=== PATIENT | female | born 1940 | race Caucasian/White ===

== ENCOUNTER 2023-09-26 18:06 | Observation (INO) ==
[2023-09-26 18:19] VITALS: BMI 23.1
--- NOTE | 2023-09-26 18:19 | DR.FEVERAD ---
HPI Time seen Time Seen by Provider: 09/26/23 18:19 PCP Primary Care Physician: Mirta Complaints/Symptoms Chief Complaint:: Cough, congestion, and fever x 2-3 days. Patient reports she has generalized weakness and poor appetite. Noted old bruise, under right eye from fall couple x 3 days. Patient family reports she has been in the recliner for several days. Noted drainage bilateral eyes Source History Provided: Patient and EMS Mode of Arrival Mode of Arrival: Stretcher Timing Onset of Chief Complaint: 09/23/23 PMH PMH Past Medical History: Yes Past Medical History: Anemia, Diabetes and Hypertension Past Medical History Comment: Afib Past Surgical History: Yes Surgical History: Hysterectomy and Ortho Surgery Family History History of Family Medical Conditions: Yes Family Medical History: Diabetes Mellitus, Cancer and Hypertension Social History Does patient currently use any type of tobacco product: No Have you used tobacco products in the last 12 months: No Type of Tobacco Use: None Does any household member use tobacco: No Alcohol Use: None Do you use any recreational Drugs:: No Lives With: Family Lives Where: Home Infectious screening In the last 2 months have you had wt loss of >10#?: NO Have you had fever, night sweats or hemotysis?: No Have you traveled outside the country in the last 6 months?: No Isolation: Respiratory PE Vital Signs Vitals: Vital Signs Temperature 99.2 F Pulse Rate 84 Pulse Rate 83 Pulse Rate 85 Pulse Rate 87 Pulse Rate 87 Pulse Rate 85 Pulse Rate 87 Pulse Rate 86 Pulse Rate 92 Pulse Rate 86 Pulse Rate 85 Pulse Rate 87 Pulse Rate 89 Pulse Rate 90 Respiratory Rate 23 Respiratory Rate 23 Respiratory Rate 25 Respiratory Rate 24 Respiratory Rate 24 Respiratory Rate 25 Respiratory Rate 25 Respiratory Rate 26 Respiratory Rate 36 Respiratory Rate 27 Respiratory Rate 26 Respiratory Rate 20 Blood Pressure 136/64 Blood Pressure 140/64 Blood Pressure 150/67 Blood Pressure 139/64 Blood Pressure 139/64 Blood Pressure 159/59 Blood Pressure 141/65 Blood Pressure 135/75 Blood Pressure 135/75 O2 Sat by Pulse Oximetry 93 O2 Sat by Pulse Oximetry 98 O2 Sat by Pulse Oximetry 98 O2 Sat by Pulse Oximetry 95 O2 Sat by Pulse Oximetry 97 O2 Sat by Pulse Oximetry 97 O2 Sat by Pulse Oximetry 96 O2 Sat by Pulse Oximetry 96 O2 Sat by Pulse Oximetry 96 ROR Labs Reviewed 09/26/23 18:40 09/26/23 18:40 Laboratory: WBC 7.5 X10^3/uL (3.6-10.0) 09/26/23 18:40 RBC 3.95 X10^6/uL (3.5-5.4) 09/26/23 18:40 Hgb 12.0 g/dL (12.0-16.0) 09/26/23 18:40 Hct 36.0 % (36.0-47.0) 09/26/23 18:40 MCV 91.1 fL (80.0-100.0) 09/26/23 18:40 MCH 30.3 pg (27.0-34.0) 09/26/23 18:40 MCHC 33.2 g/dL (33.0-35.0) 09/26/23 18:40 RDW 16.2 % (11.6-16.5) 09/26/23 18:40 Plt Count 144 X10^3/uL (150.0-450.0) L 09/26/23 18:40 MPV 8.0 fL (7.4-11.0) 09/26/23 18:40 Neut % (Auto) 78.6 % (42.0-75.0) H 09/26/23 18:40 Lymph % (Auto) 11.1 % (21.0-51.0) L 09/26/23 18:40 [place] % (Auto) 9.7 % (0.0-13.0) 09/26/23 18:40 Eos % (Auto) 0.2 % (0.9-2.9) L 09/26/23 18:40 Baso % (Auto) 0.4 % (0.2-1.0) 09/26/23 18:40 Neut # (Auto) 5.9 x10^3/uL (2.2-4.8) H 09/26/23 18:40 Lymph # (Auto) 0.8 X10^3/uL (1.3-2.9) L 09/26/23 18:40 [place] # (Auto) 0.7 x10^3/uL (0.3-0.8) 09/26/23 18:40 Eos # (Auto) 0.0 x10^3/uL (0.0-0.2) 09/26/23 18:40 Baso # (Auto) 0.0 X10^3/uL (0.0-0.1) 09/26/23 18:40 Absolute Nucleated RBC 0.1 /100WBC 09/26/23 18:40 Sodium 133 mmol/L (136-145) L 09/26/23 18:40 Corrected Sodium TNP 09/26/23 18:40 Potassium 4.3 mmol/L (3.5-5.1) 09/26/23 18:40 Chloride 100 mmol/L (98-107) 09/26/23 18:40 Carbon Dioxide 29.3 mmol/L (21-32) 09/26/23 18:40 BUN 24 mg/dL (7-18) H 09/26/23 18:40 Creatinine 1.54 mg/dL (0.55-1.02) H 09/26/23 18:40 Est GFR (MDRD) Af Amer 41 (>60) L 09/26/23 18:40 Est GFR (MDRD) Non-Af 34 (>60) L 09/26/23 18:40 Glucose 69 mg/dL (65-99) 09/26/23 18:40 Lactic Acid 0.6 mmol/L (0.4-2.0) 09/26/23 18:40 Calcium 7.9 mg/dL (8.5-10.1) L 09/26/23 18:40 Corrected Calcium 9.1 mg/dL (8.5-10.1) 09/26/23 18:40 Total Bilirubin 0.60 mg/dL (0.2-1.0) 09/26/23 18:40 AST 25 Units/L (15-37) 09/26/23 18:40 ALT 9 Units/L (12-78) L 09/26/23 18:40 Alkaline Phosphatase 82 Units/L (46-116) 09/26/23 18:40 Total Protein 6.4 g/dL (6.4-8.2) 09/26/23 18:40 Albumin 2.5 g/dL (3.4-5.0) L 09/26/23 18:40 Globulin 3.9 g/dL (2.5-4.5) 09/26/23 18:40 Albumin/Globulin Ratio 0.6 Ratio (1.1-2.1) L 09/26/23 18:40 Specimen Type Catherized urine 09/26/23 19:01 Urine Color Yellow (YELLOW) 09/26/23 19:01 Urine Appearance Clear (CLEAR) 09/26/23 19: Urine pH 5.0 (5.0 - 8.0) 09/26/23 19:01 Ur Specific [place] 1.020 (1.000-1.030) 09/26/23 19:01 Urine Protein 2+ (NEGATIVE) 09/26/23 19:01 Urine Glucose (UA) Negative (NEGATIVE) 09/26/23 19: Urine Ketones Negative (NEGATIVE) 09/26/23 19:01 Urine Blood 5+ (NEGATIVE) 09/26/23 19:01 Urine Nitrite Negative (NEGATIVE) 09/26/23 19: Urine Bilirubin Negative (NEGATIVE) 09/26/23 19:01 Urine Urobilinogen Normal (NORMAL) 09/26/23 19:01 Ur Leukocyte Esterase Negative (NEGATIVE) 09/26/23 19:01 Urine RBC 5-10 /HPF (0-3) A 09/26/23 19:01 Urine WBC None seen /HPF (0-5) 09/26/23 19:01 Ur Squamous Epith Cells Rare /HPF (NEGATIVE) 09/26/23 19:01 Urine Bacteria Negative /HPF (NEGATIVE) 09/26/23 19:01 Ur Culture Indicated? No/not indicated 09/26/23 19:01 SARS-CoV-2 (PCR) Negative (NEGATIVE) 09/26/23 18:32 Influenza Type A (PCR) Negative (NEGATIVE) 09/26/23 18:32 Influenza Type B (PCR) Negative (NEGATIVE) 09/26/23 18:32 RSV (PCR) Negative (NEGATIVE) 09/26/23 18:32 Opioid Opioid Risk Tool Age (Ousmane box if 16-45): No Total: 0 Total Score Risk Category: Low Risk Copyright: Matt NICHOLE predicting aberrant behaviors Discharge Plan Diagnosis Discharge Problem: Pneumonia, Generalized weakness Discharge Plan Patient Disposition: 09 ADMITTED INPATIENT Condition: Stable Orders to Discharge Patient Discharge Orders: Transfer (Routine); Ordered 09/26/23 Ordered By: KAREN AMARAL
[2023-09-26] MEDS ORDERED: NS 1,000 ML IV 1,000 ML IV ONE (18:29)
[2023-09-26] MEDS ORDERED: NS 1,000 ML IV 1,000 ML ONE (18:31)
[2023-09-26 18:52] LABS: BASOPHILS % (AUTO) 0.4 % (0.2-1.0); EOSINOPHILS % (AUTO) 0.2 % (0.9-2.9); LYMPHOCYTES # (AUTO) 0.8 X10^3/uL (1.3-2.9); LYMPHOCYTES % (AUTO) 11.1 % (21.0-51.0); MEAN CORPUSCULAR HEMOGLOBIN 30.3 pg (27.0-34.0); MEAN CORPUSCULAR HGB CONC 33.2 g/dL (33.0-35.0); MEAN CORPUSCULAR VOLUME 91.1 fL (80.0-100.0); MONOCYTES # (AUTO) 0.7 x10^3/uL (0.3-0.8); MONOCYTES % (AUTO) 9.7 % (0.0-13.0); NEUTROPHILS # (AUTO) 5.9 x10^3/uL (2.2-4.8); NEUTROPHILS % (AUTO) 78.6 % (42.0-75.0); PLATELET COUNT 144 X10^3/uL (150.0-450.0); RED BLOOD COUNT 3.95 X10^6/uL (3.5-5.4); RED CELL DISTRIBUTION WIDTH 16.2 % (11.6-16.5); WHITE BLOOD COUNT 7.5 X10^3/uL (3.6-10.0)
[2023-09-26 19:06] LABS: ALANINE AMINOTRANSFERASE 9 Units/L (12-78); ALBUMIN 2.5 g/dL (3.4-5.0); ALKALINE PHOSPHATASE 82 Units/L (46-116); ASPARTATE AMINO TRANSFERASE 25 Units/L (15-37); BLOOD UREA NITROGEN 24 mg/dL (7-18); CALCIUM 7.9 mg/dL (8.5-10.1); CARBON DIOXIDE 29.3 mmol/L (21-32); CHLORIDE 100 mmol/L (98-107); COR CA(FOR HYPOALB) 9.1 mg/dL (8.5-10.1); CREATININE 1.54 mg/dL (0.55-1.02); GLUCOSE 69 mg/dL (65-99); POTASSIUM 4.3 mmol/L (3.5-5.1); SODIUM 133 mmol/L (136-145); TOTAL PROTEIN 6.4 g/dL (6.4-8.2); eGFR NON BLACK RACES 34 (>60)
[2023-09-26 19:19] LABS: BILIRUBIN,URINE NEGATIVE (NEGATIVE); BLOOD/HEMOGLOBIN,URINE 5+ (NEGATIVE); GLUCOSE, URINE NEGATIVE (NEGATIVE); KETONES,URINE NEGATIVE (NEGATIVE); LEUKOCYTE ESTERASE ,URINE NEGATIVE (NEGATIVE); NITRITES,URINE NEGATIVE (NEGATIVE); PROTEIN,URINE 2+ (NEGATIVE); UROBILINOGEN,URINE NORMAL (NORMAL)
[2023-09-26 19:23] LABS: APPEARANCE,URINE CLEAR (CLEAR); BACTERIA,URINE NEGATIVE /HPF (NEGATIVE); COLOR,URINE YELLOW (YELLOW); SQUAMOUS EPITHELIAL CELL,UR RARE /HPF (NEGATIVE)
[2023-09-26] MEDS ORDERED: ROCEPHIN VIAL 1 GRAM IVP ONE (19:29)
[2023-09-26] MEDS ORDERED: ROCEPHIN VIAL 1 GRAM ONE (19:30)
--- NOTE | 2023-09-26 21:21 | RAD ---
EXAM:CHEST, 1 VIEWHISTORY:cough, congestion, fever;COMPARISON:CT thoracic spine from September 01, 2023 and chest radiograph from May 08, 2023TECHNIQUE:Chest radiographic imaging 1 view AP projectionFINDINGS:No cardiomegalyNo focal infiltrate.Airspace opacity at the medial right lung base correlates with elevation of the stomach above the diaphragm; as seen on the comparison CT.No acute osseous abnormality.No pleural effusion.No pneumothorax.Soft tissues are unremarkable.No acute osseous abnormality.IMPRESSION:No imaging findings of acute cardiopulmonary diseaseTHIS IS AN ELECTRONICALLY VERIFIED FINAL [id number]/26/2023 9:17 PM - Electronically signed by Channing Mcpherson MD
[2023-09-26] MEDS ORDERED: VENTOLIN or PROAIR HFA IN PRN (23:34)
[2023-09-26] MEDS ORDERED: NovoLIN R (or HumuLIN R) SC PRN (23:34)
[2023-09-27] MEDS: NS 1,000 ML IV 1,000 ML IV SCH ×2 (00:06→15:23)
[2023-09-27 05:11] LABS: BASOPHILS % (AUTO) 0.4 % (0.2-1.0); EOSINOPHILS % (AUTO) 0.8 % (0.9-2.9); HEMATOCRIT 35.5 % (36.0-47.0); HEMOGLOBIN 11.7 g/dL (12.0-16.0); LYMPHOCYTES # (AUTO) 0.9 X10^3/uL (1.3-2.9); LYMPHOCYTES % (AUTO) 14.9 % (21.0-51.0); MEAN CORPUSCULAR VOLUME 91.1 fL (80.0-100.0); MEAN PLATELET VOLUME 8.4 fL (7.4-11.0); MONOCYTES # (AUTO) 0.7 x10^3/uL (0.3-0.8); MONOCYTES % (AUTO) 11.4 % (0.0-13.0); NEUTROPHILS # (AUTO) 4.2 x10^3/uL (2.2-4.8); NEUTROPHILS % (AUTO) 72.5 % (42.0-75.0); PLATELET COUNT 139 X10^3/uL (150.0-450.0); RED CELL DISTRIBUTION WIDTH 16.2 % (11.6-16.5); WHITE BLOOD COUNT 5.8 X10^3/uL (3.6-10.0)
[2023-09-27 05:27] LABS: ALANINE AMINOTRANSFERASE 6 Units/L (12-78); ALBUMIN 2.3 g/dL (3.4-5.0); ALKALINE PHOSPHATASE 78 Units/L (46-116); ASPARTATE AMINO TRANSFERASE 28 Units/L (15-37); BLOOD UREA NITROGEN 22 mg/dL (7-18); CALCIUM 7.8 mg/dL (8.5-10.1); CARBON DIOXIDE 29.5 mmol/L (21-32); CHLORIDE 102 mmol/L (98-107); COR CA(FOR HYPOALB) 9.2 mg/dL (8.5-10.1); CREATININE 1.39 mg/dL (0.55-1.02); GLUCOSE 83 mg/dL (65-99); MAGNESIUM 1.7 mg/dL (2.0-2.9); SODIUM 135 mmol/L (136-145); eGFR NON BLACK RACES 38 (>60)
[2023-09-27] MEDS ORDERED: CONSULT PHARMACY - POTASSIUM & MAGNESIUM XX SCH (07:00)
[2023-09-27] MEDS: AMARYL TAB 4 MG PO SCH (08:35)
[2023-09-27] MEDS: ZYLOPRIM PO SCH (08:36)
[2023-09-27] MEDS: FERROUS GLUCONATE PO SCH (08:36)
[2023-09-27] MEDS: XARELTO PO SCH (08:36)
[2023-09-27] MEDS: CARDIZEM ER 60 MG 12-HR PO SCH ×2 (08:36→20:49)
[2023-09-27] MEDS: LASIX PO SCH (08:37)
[2023-09-27] MEDS: COREG TAB 3.125 MG PO SCH ×2 (08:37→20:49)
[2023-09-27] MEDS: ZyrTEC SYRUP 1 MG/ML 5ml unit dose PO SCH (08:37)
[2023-09-27] MEDS: MAG-OX TAB PO SCH ×2 (08:37→10:43)
[2023-09-27] MEDS: Atrovent NEB TX 0.02% NEB SCH ×4 (08:59→20:45)
[2023-09-27] MEDS ORDERED: SIMVASTATIN 5 MG PO SCH (09:00)
[2023-09-27] MEDS ORDERED: Atrovent NEB TX 0.02% NEB SCH (09:00)
[2023-09-27] MEDS: CALCIFEDIOL 30 MCG PO SCH ×2 (11:12→15:36)
[2023-09-27] MEDS: [UNRECOGNIZED DRUG - OTHER] PO SCH ×2 (11:12→15:36)
--- NOTE | 2023-09-27 12:48 | DR.H&P ---
H&P History & Physical for Day of: H&P Date: 09/27/23 Chief Complaint Chief Complaint: Cough, congestion and fever for 2 to 3 days. Allergies Allergies Allergy/AdvReac Type Severity Reaction Status Date / Time Sulfa (Sulfonamide Allergy Mild Verified 09/26/23 18:29 Antibiotics) [SULFA] clindamycin Allergy Verified 09/26/23 19:04 History of Present Illness History of Present Illness: This is a pleasant 83-year-old white female who presented to [facility] emergency department with the chief complaint of a cough with congestion and fever for the last 2 to 3 days. She is coughing up some yellow-colored sputum that is fairly thick she reports. She does, she has a history of COPD. She is a non-smoker and has never been a smoker in the past. She reports that she has had generalized weakness and poor appetite. She also tells me that she fell about 2 weeks ago and has bruising under both of her eyes. She has been in a recliner for the last several days and has no other reports of problems except what is listed above. She is noted to be mildly anemic and also to have mild dehydration. Past Medical History Past Medical History: Anemia, Diabetes and Hypertension Past Surgical History Surgical History: Hysterectomy and Ortho Surgery Family History Family Medical History: Diabetes Mellitus and Hypertension Social History Does patient currently use any type of tobacco product: No Have you used tobacco products in the last 12 months: No Type of Tobacco Use: None Does any household member use tobacco: No Alcohol Use: None Drug Use: None Medications Home Medications: Home Medications Medication Instructions Recorded Confirmed Type diltiazem HCl 60 mg 60 mg PO BID 09/25/15 09/26/23 History capsule,extended release 12 hr rivaroxaban 10 mg tablet (Xarelto) 5 mg PO DAILY 09/25/15 09/26/23 History venlafaxine 37.5 mg tablet 37.5 mg PO HS 09/25/15 09/26/23 History albuterol sulfate 90 mcg/actuation 2 puff inhalation Q6H PRN 09/26/23 09/26/23 History aerosol inhaler allopurinol 100 mg tablet 100 mg PO QDAY 09/26/23 09/26/23 History calcifediol 30 mcg capsule,24 30 mcg PO QDAY 09/26/23 09/26/23 History hr,extended release (Rayaldee) carvedilol 3.125 mg tablet 3.125 mg PO BID 09/26/23 09/26/23 History doxepin 10 mg capsule 10 mg PO QPM 09/26/23 09/26/23 History ferrous sulfate 325 mg (65 mg 325 mg PO QPM 09/26/23 09/26/23 History iron) tablet (FeroSul) furosemide 40 mg tablet 40 mg PO QDAY 09/26/23 09/26/23 History gabapentin 100 mg capsule 100 mg PO QPM 09/26/23 09/26/23 History glimepiride 4 mg tablet 4 mg PO QDAY 09/26/23 09/26/23 History insulin regular human 100 unit/mL See Rx Instructions .Route 09/26/23 09/26/23 History injection solution .COMPLEX PRN ipratropium bromide 0.02 % 1 ml continuous nebulization QID 09/26/23 09/26/23 History solution for inhalation levocetirizine 5 mg tablet 2.5 mg PO QDAY 09/26/23 09/26/23 History semaglutide 0.25 mg or 0.5 mg (2 0.5 mg subcut QWEEK 09/26/23 09/26/23 History mg/3 mL) subcutaneous pen injector (Ozempic) simvastatin 5 mg tablet 5 mg PO QDAY 09/26/23 09/26/23 History Labs 09/27/23 04:21 09/27/23 04:21 Labs: Laboratory WBC 5.8 X10^3/uL (3.6-10.0) 09/27/23 04:21 RBC 3.90 X10^6/uL (3.5-5.4) 09/27/23 04:21 Hgb 11.7 g/dL (12.0-16.0) L 09/27/23 04:21 Hct 35.5 % (36.0-47.0) L 09/27/23 04:21 MCV 91.1 fL (80.0-100.0) 09/27/23 04:21 MCH 30.0 pg (27.0-34.0) 09/27/23 04:21 MCHC 33.0 g/dL (33.0-35.0) 09/27/23 04:21 RDW 16.2 % (11.6-16.5) 09/27/23 04:21 Plt Count 139 X10^3/uL (150.0-450.0) L 09/27/23 04:21 MPV 8.4 fL (7.4-11.0) 09/27/23 04:21 Neut % (Auto) 72.5 % (42.0-75.0) 09/27/23 04:21 Lymph % (Auto) 14.9 % (21.0-51.0) L 09/27/23 04:21 [place] % (Auto) 11.4 % (0.0-13.0) 09/27/23 04:21 Eos % (Auto) 0.8 % (0.9-2.9) L 09/27/23 04:21 Baso % (Auto) 0.4 % (0.2-1.0) 09/27/23 04:21 Neut # (Auto) 4.2 x10^3/uL (2.2-4.8) 09/27/23 04:21 Lymph # (Auto) 0.9 X10^3/uL (1.3-2.9) L 09/27/23 04:21 [place] # (Auto) 0.7 x10^3/uL (0.3-0.8) 09/27/23 04:21 Eos # (Auto) 0.0 x10^3/uL (0.0-0.2) 09/27/23 04:21 Baso # (Auto) 0.0 X10^3/uL (0.0-0.1) 09/27/23 04:21 Absolute Nucleated RBC 0.0 /100WBC 09/27/23 04:21 Sodium 135 mmol/L (136-145) L 09/27/23 04:21 Corrected Sodium TNP 09/27/23 04:21 Potassium 4.0 mmol/L (3.5-5.1) 09/27/23 04:21 Chloride 102 mmol/L (98-107) 09/27/23 04:21 Carbon Dioxide 29.5 mmol/L (21-32) 09/27/23 04:21 BUN 22 mg/dL (7-18) H 09/27/23 04:21 Creatinine 1.39 mg/dL (0.55-1.02) H 09/27/23 04:21 Est GFR (MDRD) Af Amer 47 (>60) L 09/27/23 04:21 Est GFR (MDRD) Non-Af 38 (>60) L 09/27/23 04:21 Glucose 83 mg/dL (65-99) 09/27/23 04:21 POC Glucose (mg/dL) 147 mg/dL (65-99) H 09/27/23 11:19 Lactic Acid 0.6 mmol/L (0.4-2.0) 09/26/23 18:40 Calcium 7.8 mg/dL (8.5-10.1) L 09/27/23 04:21 Corrected Calcium 9.2 mg/dL (8.5-10.1) 09/27/23 04:21 Magnesium 1.7 mg/dL (2.0-2.9) L 09/27/23 04:21 Total Bilirubin 0.40 mg/dL (0.2-1.0) 09/27/23 04:21 AST 28 Units/L (15-37) 09/27/23 04:21 ALT 6 Units/L (12-78) L 09/27/23 04:21 Alkaline Phosphatase 78 Units/L (46-116) 09/27/23 04:21 Total Protein 6.0 g/dL (6.4-8.2) L 09/27/23 04:21 Albumin 2.3 g/dL (3.4-5.0) L 09/27/23 04:21 Globulin 3.7 g/dL (2.5-4.5) 09/27/23 04:21 Albumin/Globulin Ratio 0.6 Ratio (1.1-2.1) L 09/27/23 04:21 Specimen Type Catherized urine 09/26/23 19:01 Urine Color Yellow (YELLOW) 09/26/23 19:01 Urine Appearance Clear (CLEAR) 09/26/23 19: Urine pH 5.0 (5.0 - 8.0) 09/26/23 19:01 Ur Specific [place] 1.020 (1.000-1.030) 09/26/23 19:01 Urine Protein 2+ (NEGATIVE) 09/26/23 19: Urine Glucose (UA) Negative (NEGATIVE) 09/26/23 19:01 Urine Ketones Negative (NEGATIVE) 09/26/23 19:01 Urine Blood 5+ (NEGATIVE) 09/26/23 19:01 Urine Nitrite Negative (NEGATIVE) 09/26/23 19:01 Urine Bilirubin Negative (NEGATIVE) 09/26/23 19:01 Urine Urobilinogen Normal (NORMAL) 09/26/23 19:01 Ur Leukocyte Esterase Negative (NEGATIVE) 09/26/23 19:01 Urine RBC 5-10 /HPF (0-3) A 09/26/23 19:01 Urine WBC None seen /HPF (0-5) 09/26/23 19:01 Ur Squamous Epith Cells Rare /HPF (NEGATIVE) 09/26/23 19:01 Urine Bacteria Negative /HPF (NEGATIVE) 09/26/23 19:01 Ur Culture Indicated? No/not indicated 09/26/23 19:01 SARS-CoV-2 (PCR) Negative (NEGATIVE) 09/26/23 18:32 Influenza Type A (PCR) Negative (NEGATIVE) 09/26/23 18:32 Influenza Type B (PCR) Negative (NEGATIVE) 09/26/23 18:32 RSV (PCR) Negative (NEGATIVE) 09/26/23 18:32 Review of Systems Constitutional: Fever, Chills, Weakness and Malaise Eyes: No Symptoms Reported ENT: No Symptoms Reported Respiratory: Cough, Shortness of Breath, SOB with Excertion and Sputum Cardiovascular: No Symptoms Reported Gastrointestinal: No Symptoms Reported Genitourinary: No Symptoms Reported Musculoskeletal: No Symptoms Reported Skin: No Symptoms Reported Neurological: No Symptoms Reported Physical Exam Vital Signs: Vital Signs Temperature 98.4 F Temperature 98.8 F Pulse Rate [Left Radial] 91 Pulse Rate [Left Radial] 95 Pulse Rate 84 Respiratory Rate 26 Respiratory Rate 26 Blood Pressure [Left Arm] 116/57 Blood Pressure [Left Arm] 135/67 O2 Sat by Pulse Oximetry 93 O2 Sat by Pulse Oximetry 99 O2 Sat by Pulse Oximetry 91 Oriented: Normal, Time, Person and Place Eyes: Normal Ear: Normal Nose: Normal Throat: Normal Respiratory: Diminished Throughout and Wheezes Throughout Cardiovascular: Normal : Normal Auscultation: Bowel Sounds: Normal Palpation: Normal Tenderness: Normal Skin: Decreased Turgur Musculoskeletal: Normal Psychiatric: Normal Mood Description: Calm Affect: Normal Speech Pattern: Clear Assessment/Plan (1) COPD exacerbation: Status: Acute Plan: Albuterol nebs along with ipratropium nebs. IV Rocephin and Solu- Medrol. Follow for improvement. (2) DM (diabetes mellitus), type 2: Qualifiers: Diabetes mellitus complication status: with unspecified complications Diabetes mellitus oysterman insulin use: with oysterman use Qualified Code(s): E11.8 - Type 2 diabetes mellitus with unspecified complications; Z79.4 - assistant terminal manager (current) use of insulin Status: Chronic (3) CHF (congestive heart failure): Qualifiers: Congestive heart failure chronicity: chronic Status: Acute Plan: Monitor daily BMPs and portable chest x-rays. (4) SOB (shortness of breath): Status: Acute (5) History of anemia: Status: Chronic Plan: Monitor daily CBCs. (6) Hypertension: Status: Chronic Plan: Monitor daily blood pressures. Review H&P Reviewed: Yes Patient was examined?: Yes
[2023-09-27] MEDS: LEVAQUIN PREMIX IV 250 MG 250 MG/50 ML BAG IV SCH (14:28)
[2023-09-27] MEDS ORDERED: SNACK - Diabetic Appropriate PO SCH (20:00)
[2023-09-27] MEDS ORDERED: SINEquan PO SCH (21:00)
[2023-09-27] MEDS ORDERED: ZOCOR TAB 10 MG PO SCH (21:00)
[2023-09-27] MEDS ORDERED: EFFEXOR TAB 37.5 MG (BID DOSING) PO SCH (21:00)
[2023-09-27] MEDS ORDERED: NEURONTIN CAP 100 MG PO SCH (21:00)
[2023-09-27] MEDS ORDERED: ROCEPHIN VIAL 1 GRAM 1 G in NS 100 ML IV 100 ML IV SCH (21:00)
[2023-09-28] MEDS: NS 1,000 ML IV 1,000 ML IV SCH ×2 (00:50→05:33)
[2023-09-28 05:53] LABS: BASOPHILS % (AUTO) 0.5 % (0.2-1.0); EOSINOPHILS # (AUTO) 0.1 x10^3/uL (0.0-0.2); EOSINOPHILS % (AUTO) 2.5 % (0.9-2.9); HEMATOCRIT 33.3 % (36.0-47.0); LYMPHOCYTES # (AUTO) 0.9 X10^3/uL (1.3-2.9); MEAN CORPUSCULAR HEMOGLOBIN 30.1 pg (27.0-34.0); MEAN CORPUSCULAR HGB CONC 33.1 g/dL (33.0-35.0); MEAN CORPUSCULAR VOLUME 90.9 fL (80.0-100.0); MEAN PLATELET VOLUME 8.2 fL (7.4-11.0); MONOCYTES # (AUTO) 0.5 x10^3/uL (0.3-0.8); MONOCYTES % (AUTO) 11.3 % (0.0-13.0); NEUTROPHILS # (AUTO) 2.7 x10^3/uL (2.2-4.8); NEUTROPHILS % (AUTO) 63.7 % (42.0-75.0); PLATELET COUNT 142 X10^3/uL (150.0-450.0); RED BLOOD COUNT 3.66 X10^6/uL (3.5-5.4); RED CELL DISTRIBUTION WIDTH 15.9 % (11.6-16.5); WHITE BLOOD COUNT 4.2 X10^3/uL (3.6-10.0)
[2023-09-28 06:06] LABS: ALBUMIN 2.3 g/dL (3.4-5.0); CALCIUM 7.7 mg/dL (8.5-10.1); CARBON DIOXIDE 29.5 mmol/L (21-32); COR CA(FOR HYPOALB) 9.1 mg/dL (8.5-10.1); CREATININE 1.47 mg/dL (0.55-1.02); MAGNESIUM 1.7 mg/dL (2.0-2.9); POTASSIUM 3.7 mmol/L (3.5-5.1)
[2023-09-28] MEDS ORDERED: CONSULT PHARMACY - POTASSIUM & MAGNESIUM XX SCH ×2 (07:00)
[2023-09-28] MEDS: Atrovent NEB TX 0.02% NEB SCH (08:53)
[2023-09-28] MEDS ORDERED: K-DUR TAB 20 MEQ PO SCH (09:00)
[2023-09-28] MEDS: LEVAQUIN PREMIX IV 250 MG 250 MG/50 ML BAG IV SCH (09:42)
[2023-09-28] MEDS: ZyrTEC SYRUP 1 MG/ML 5ml unit dose PO SCH (09:44)
[2023-09-28] MEDS: LASIX PO SCH (09:45)
[2023-09-28] MEDS: CARDIZEM ER 60 MG 12-HR PO SCH (09:45)
[2023-09-28] MEDS: XARELTO PO SCH (09:45)
[2023-09-28] MEDS: COREG TAB 3.125 MG PO SCH (09:46)
[2023-09-28] MEDS: MAG-OX TAB PO SCH ×2 (09:46→09:57)
[2023-09-28] MEDS: FERROUS GLUCONATE PO SCH (09:46)
[2023-09-28] MEDS: ZYLOPRIM PO SCH (09:47)
[2023-09-28] MEDS: [UNRECOGNIZED DRUG - OTHER] PO SCH (09:48)
[2023-09-28] MEDS: CALCIFEDIOL 30 MCG PO SCH (09:48)
[2023-09-28] MEDS: AMARYL TAB 4 MG PO SCH (09:55)
--- NOTE | 2023-09-28 11:42 | RAD ---
EXAM:CHEST, 1 VIEWHISTORY:PRODUCTIVE COUGH;COMPARISON:No relevant prior studies were available at the time of interpretation.TECHNIQUE:CHEST, 1 VIEWFINDINGS:Lines and tubes: NoneMediastinum:The cardiomediastinal silhouette is within normal limits for size and contour.Pulmonary vasculature:No pulmonary vascular congestionLung powell: No definite suspicious airspace opacities. Right lower lung field atelectasis. Left lower lung field atelectasis.Pleura:No effusion or pneumothorax.Bones and soft tissues:No acute osseous or soft tissue abnormality. Large hiatus versus paraesophageal herniaIMPRESSION:1. Large hiatus hernia exerting mass effect upon the lower lung fieldsTHIS IS AN ELECTRONICALLY VERIFIED FINAL [id number]/2023 11:38 AM - Electronically signed by Dagoberto Tobias MD
[2023-09-28 11:59] VITALS: BP 131/65; PULSE 87; RESP 20; TEMP 97.6; O2SAT 95
--- NOTE | 2023-09-28 13:10 | PCM.DCPLAN ---
DISCHARGE SUMMARY Admission Date Date of Admission: 09/26/23 Discharge Date Discharge Date: 09/28/23 Admission Diagnoses (1) Infection due to Mycoplasma pneumoniae: Status: Acute (2) COPD exacerbation: Status: Acute (3) DM (diabetes mellitus), type 2: Status: Chronic (4) CHF (congestive heart failure): Status: Acute (5) SOB (shortness of breath): Status: Acute (6) History of anemia: Status: Chronic (7) Hypertension: Status: Chronic Discharge Diagnoses Discharge Diagnosis: 1. COPD exacerbation 2. Shortness of breath 3. Congestive heart failure 4. Diabetes mellitus type 2 5. History of anemia 6. Hypertension 7. Mycoplasma pneumoniae respiratory infection Discharge Medications Discharge Medications: Home Medication List albuterol sulfate 90 mcg/actuation aerosol inhaler 2 puff inhalation Q6H PRN 09/26/23 [History] allopurinol 100 mg tablet 100 mg PO QDAY 09/26/23 [History] calcifediol 30 mcg capsule,24 hr,extended release (Rayaldee) 30 mcg PO QDAY 09/26/23 [History] carvedilol 3.125 mg tablet 3.125 mg PO BID 09/26/23 [History] doxepin 10 mg capsule 10 mg PO QPM 09/26/23 [History] ferrous sulfate 325 mg (65 mg iron) tablet (FeroSul) 325 mg PO QPM 09/26/23 [History] furosemide 40 mg tablet 40 mg PO QDAY 09/26/23 [History] gabapentin 100 mg capsule 100 mg PO QPM 09/26/23 [History] glimepiride 4 mg tablet 4 mg PO QDAY 09/26/23 [History] insulin regular human 100 unit/mL injection solution See Rx Instructions .Route .COMPLEX PRN 09/26/23 [History] ipratropium bromide 0.02 % solution for inhalation 1 ml continuous nebulization QID 09/26/23 [History] levocetirizine 5 mg tablet 2.5 mg PO QDAY 09/26/23 [History] semaglutide 0.25 mg or 0.5 mg (2 mg/3 mL) subcutaneous pen injector (Ozempic) 0.5 mg subcut QWEEK 09/26/23 [History] simvastatin 5 mg tablet 5 mg PO QDAY 09/26/23 [History] cefuroxime axetil 500 mg tablet 500 mg PO BID 7 days #14 tabs 09/28/23 [Rx] levofloxacin 500 mg tablet 500 mg PO QDAY 7 days #7 tabs 09/28/23 [Rx] methylprednisolone 4 mg tablets in a dose pack (Medrol (Shay)) See Rx Instructions .Route .COMPLEX #1 ea 09/28/23 [Rx] Prescriptions: cefuroxime axetil YUE CRAMER levofloxacin YUE CRAMER methylprednisolone [Medrol (Shay)] YUE CRAMER Hospital Course Vital Signs: Vital Signs Temperature 97.6 F Temperature 98 F Pulse Rate [Left Radial] 87 Pulse Rate [Left Radial] 93 Pulse Rate 92 Respiratory Rate 20 Respiratory Rate 22 Blood Pressure [Left Arm] 131/65 Blood Pressure [Left Arm] 133/67 O2 Sat by Pulse Oximetry 95 O2 Sat by Pulse Oximetry 92 O2 Sat by Pulse Oximetry 91 Latest Lab Results: Laboratory Last Values WBC 4.2 X10^3/uL (3.6-10.0) 09/28/23 05:37 RBC 3.66 X10^6/uL (3.5-5.4) 09/28/23 05:37 Hgb 11.0 g/dL (12.0-16.0) L 09/28/23 05:37 Hct 33.3 % (36.0-47.0) L 09/28/23 05:37 MCV 90.9 fL (80.0-100.0) 09/28/23 05:37 MCH 30.1 pg (27.0-34.0) 09/28/23 05:37 MCHC 33.1 g/dL (33.0-35.0) 09/28/23 05:37 RDW 15.9 % (11.6-16.5) 09/28/23 05:37 Plt Count 142 X10^3/uL (150.0-450.0) L 09/28/23 05:37 MPV 8.2 fL (7.4-11.0) 09/28/23 05:37 Neut % (Auto) 63.7 % (42.0-75.0) 09/28/23 05:37 Lymph % (Auto) 22.0 % (21.0-51.0) 09/28/23 05:37 [place] % (Auto) 11.3 % (0.0-13.0) 09/28/23 05:37 Eos % (Auto) 2.5 % (0.9-2.9) 09/28/23 05:37 Baso % (Auto) 0.5 % (0.2-1.0) 09/28/23 05:37 Neut # (Auto) 2.7 x10^3/uL (2.2-4.8) 09/28/23 05:37 Lymph # (Auto) 0.9 X10^3/uL (1.3-2.9) L 09/28/23 05:37 [place] # (Auto) 0.5 x10^3/uL (0.3-0.8) 09/28/23 05:37 Eos # (Auto) 0.1 x10^3/uL (0.0-0.2) 09/28/23 05:37 Baso # (Auto) 0.0 X10^3/uL (0.0-0.1) 09/28/23 05:37 Absolute Nucleated RBC 0.1 /100WBC 09/28/23 05:37 Sodium 138 mmol/L (136-145) 09/28/23 05:37 Corrected Sodium 139 mmol/L (136-145) 09/28/23 05:37 Potassium 3.7 mmol/L (3.5-5.1) 09/28/23 05:37 Chloride 103 mmol/L (98-107) 09/28/23 05:37 Carbon Dioxide 29.5 mmol/L (21-32) 09/28/23 05:37 BUN 24 mg/dL (7-18) H 09/28/23 05:37 Creatinine 1.47 mg/dL (0.55-1.02) H 09/28/23 05:37 Est GFR (MDRD) Af Amer 44 (>60) L 09/28/23 05:37 Est GFR (MDRD) Non-Af 36 (>60) L 09/28/23 05:37 Glucose 122 mg/dL (65-99) H 09/28/23 05:37 POC Glucose (mg/dL) 130 mg/dL (65-99) H 09/28/23 11:44 Lactic Acid 0.6 mmol/L (0.4-2.0) 09/26/23 18:40 Calcium 7.7 mg/dL (8.5-10.1) L 09/28/23 05:37 Corrected Calcium 9.1 mg/dL (8.5-10.1) 09/28/23 05:37 Magnesium 1.7 mg/dL (2.0-2.9) L 09/28/23 05:37 Total Bilirubin 0.40 mg/dL (0.2-1.0) 09/28/23 05:37 AST 45 Units/L (15-37) H 09/28/23 05:37 ALT 14 Units/L (12-78) 09/28/23 05:37 Alkaline Phosphatase 100 Units/L (46-116) 09/28/23 05:37 B-Natriuretic Peptide 152 pg/mL (0-79) H 09/27/23 13:20 Total Protein 6.0 g/dL (6.4-8.2) L 09/28/23 05:37 Albumin 2.3 g/dL (3.4-5.0) L 09/28/23 05:37 Globulin 3.7 g/dL (2.5-4.5) 09/28/23 05:37 Albumin/Globulin Ratio 0.6 Ratio (1.1-2.1) L 09/28/23 05:37 Specimen Type Catherized urine 09/26/23 19:01 Urine Color Yellow (YELLOW) 09/26/23 19:01 Urine Appearance Clear (CLEAR) 09/26/23 19:01 Urine pH 5.0 (5.0 - 8.0) 09/26/23 19:01 Ur Specific [place] 1.020 (1.000-1.030) 09/26/23 19:01 Urine Protein 2+ (NEGATIVE) 09/26/23 19: Urine Glucose (UA) Negative (NEGATIVE) 09/26/23 19: Urine Ketones Negative (NEGATIVE) 09/26/23 19: Urine Blood 5+ (NEGATIVE) 09/26/23 19: Urine Nitrite Negative (NEGATIVE) 09/26/23 19: Urine Bilirubin Negative (NEGATIVE) 09/26/23 19: Urine Urobilinogen Normal (NORMAL) 09/26/23 19: Ur Leukocyte Esterase Negative (NEGATIVE) 09/26/23 19: Urine RBC 5-10 /HPF (0-3) A 09/26/23 19:01 Urine WBC None seen /HPF (0-5) 09/26/23 19:01 Ur Squamous Epith Cells Rare /HPF (NEGATIVE) 09/26/23 19:01 Urine Bacteria Negative /HPF (NEGATIVE) 09/26/23 19:01 Ur Culture Indicated? No/not indicated 09/26/23 19:01 SARS-CoV-2 (PCR) Negative (NEGATIVE) 09/26/23 18:32 Influenza Type A (PCR) Negative (NEGATIVE) 09/26/23 18:32 Influenza Type B (PCR) Negative (NEGATIVE) 09/26/23 18:32 RSV (PCR) Negative (NEGATIVE) 09/26/23 18:32 Resp Viral Panel (PCR) See scanned report 09/26/23 22:30 Hospital Course: This is a pleasant 83-year-old white female who presented to [facility] emergency department with the chief complaint of a cough with congestion and fever for the last 2 to 3 days. She is coughing up some yellow-colored sputum that is fairly thick she reports. She does, she has a history of COPD. She is a non-smoker and has never been a smoker in the past. She reports that she has had generalized weakness and poor appetite. She also tells me that she fell about 2 weeks ago and has bruising under both of her eyes. She has been in a recliner for the last several days and has no other reports of problems except what is listed above. She is noted to be mildly anemic and also to have mild dehydration. After admission the patient was started on IV Levaquin as well. Chest x-ray did not show pneumonia but we treated her for COPD exacerbation. We did treat her with IV Rocephin as well. She was also given IV Solu-Medrol as well. She improved fairly well after was seen in the emergency department by the second day. By the following day she was feeling much better and we did not have the chest x-ray on the morning of the third day that we ordered and added back by lunch. He did not show any further pneumonia. But by then we did get result back on the sputum culture that showed Mycoplasma pneumoniae. It is sensitive to the Levaquin and the patient was feeling good enough to go home. We discharged her home on Levaquin 500 mg daily for 10 days., Symbicort 160/4.51 puff twice daily, Medrol Dosepak taken as directed, told her to take Robitussin cough medicine [id number] as directed and she will be following up with her primary care provider Dr. Curry, family medicine in [place], [place] for hospital follow-up. Patient was discharged home in stable condition and she was told that she should have any further problems to contact her primary care provider but if she was not able to get in touch with her to go to the closest emergency department for further evaluation and treatment. Patient understands this.
[2023-10-03] MEDS ORDERED: [UNRECOGNIZED DRUG - REMARK] SUBCUT SCH (09:00)
== END 2023-09-28 13:50 | disposition home health service (06) ==
LOC: MED/SURG 18:06 → ER 18:06 → MED/SURG 22:05
PROVIDERS: ADMIT Family Medicine; ATTEND Family Medicine
DX: E11.65 Type 2 diabetes mellitus with hyperglycemia; I11.0 Hypertensive heart disease with heart failure; J44.1 Chronic obstructive pulmonary disease with (acute) exacerbation; I50.9 Heart failure, unspecified; J15.7 Pneumonia due to Mycoplasma pneumoniae; Z20.822 Contact with and (suspected) exposure to COVID-19; R26.89 Other abnormalities of gait and mobility; R06.02 Shortness of breath; K44.9 Diaphragmatic hernia without obstruction or gangrene; Z91.81 History of falling; E83.42 Hypomagnesemia; Z79.4 Long term (current) use of insulin; R53.1 Weakness; I48.91 Unspecified atrial fibrillation